=== PATIENT | male | born 1985 | race African-American/Black ===

== ENCOUNTER 2017-12-14 13:00 | Emergency (ER) | payer MEDICAID, OTHER ==
[~2017-12-14] VITALS: Ht 165.1 cm; Wt 93.0 kg
[2017-12-14 14:06] VITALS: BP 129/76
== END 2017-12-14 14:53 | disposition home or self-care (01) ==
LOC: ER 13:03
DX: S60.032A Contusion of left middle finger without damage to nail, initial encounter (principal); F17.210 Nicotine dependence, cigarettes, uncomplicated; W20.8XXA Other cause of strike by thrown, projected or falling object, initial encounter; Y93.89 Activity, other specified; Y92.89 Other specified places as the place of occurrence of the external cause; Y99.8 Other external cause status
CPT/HCPCS: 73140